=== PATIENT | female | born 1950 | race Caucasian/White ===

== ENCOUNTER → 2018-01-11 12:45 | Outpatient (CLI) | payer BC, SELFPAY | PROVIDERS: PCP Physician Assistant Medical; Visit Provider Physician Assistant | DX: R30.0 Dysuria (principal) | CPT/HCPCS: 87086 ==

== ENCOUNTER → 2018-03-08 15:01 | Outpatient (CLI) | payer BC, SELFPAY ==
--- NOTE | 2018-03-08 | DI.MG.S_ITS ---
BILATERAL DIGITAL SCREENING MAMMOGRAM 3D/2D WITH CAD: 03/08/2018 CLINICAL: Routine screening. Comparison is made to exams dated: 06/13/2016 mammogram, 01/26/2015 mammogram, and 01/13/2014 mammogram - [facility]. The tissue of both breasts is heterogeneously dense. This may lower the sensitivity of mammography. Current study was also evaluated with a Computer Aided Detection (CAD) system. There is an asymmetry in the right breast middle depth central to the nipple seen on the craniocaudal view only. There is an asymmetry in the left breast middle depth upper region seen on the mediolateral oblique view only. No other significant masses or calcifications are seen in either breast. IMPRESSION: INCOMPLETE: NEEDS ADDITIONAL IMAGING EVALUATION The asymmetry in the right breast middle depth central to the nipple seen on the craniocaudal view only is indeterminate. Additional views with possible ultrasound are recommended. The asymmetry in the left breast middle depth upper region seen on the mediolateral oblique view only is indeterminate. Additional views with possible ultrasound are recommended. This exam was interpreted at Station ID: [id number]. NOTE: For mammograms, a report in lay terms will be sent to the patient. Approximately 15% of breast malignancies will not be visualized mammographically. In the management of a palpable breast mass, a negative mammogram must not discourage biopsy of a clinically suspicious lesion. Electronically Signed By: Juarez Quinn M.D. ecl/:03/10/2018 00:22:51 letter sent: Additional Imaging Needed ACR BI-RADS Category 0: Incomplete 3340F
== END ==
PROVIDERS: PCP Physician Assistant; Visit Provider Physician Assistant Medical
DX: Z12.31 Encounter for screening mammogram for malignant neoplasm of breast (principal)
CPT/HCPCS: 77063; 77067

== ENCOUNTER → 2018-04-02 08:54 | Outpatient (CLI) | payer BC, SELFPAY ==
--- NOTE | 2018-04-02 | DI.MG.S_ITS ---
BILATERAL DIGITAL DIAGNOSTIC MAMMOGRAM 3D/2D WITH ADDITIONAL VIEWS: 04/02/2018 CLINICAL: Additional evaluation requested from prior study. Comparison is made to exams dated: 03/08/2018 mammogram, 06/13/2016 mammogram, and 01/26/2015 mammogram - [facility]. The tissue of both breasts is heterogeneously dense. This may lower the sensitivity of mammography. There is a benign oval asymmetry in the right breast anterior depth central to the nipple seen on the craniocaudal view only. This is not seen in additional views. There is irregular equal density architectural distortion with an indistinct margin in the left breast at 1 o'clock middle depth. This is less prominent. No other significant masses or calcifications are seen in either breast. IMPRESSION: INCOMPLETE: NEEDS ADDITIONAL IMAGING EVALUATION The irregular equal density architectural distortion in the left breast at 1 o'clock middle depth is indeterminate. An ultrasound is recommended. This exam was interpreted at Station ID: [id number]. NOTE: For mammograms, a report in lay terms will be sent to the patient. Approximately 15% of breast malignancies will not be visualized mammographically. In the management of a palpable breast mass, a negative mammogram must not discourage biopsy of a clinically suspicious lesion. Electronically Signed By: Nicholas trivedi/crystal:04/06/2018 10:46:06 letter sent: Need Ultrasound ACR BI-RADS Category 0: Incomplete 3340F
--- NOTE | 2018-04-02 | DI.US.S_ITS ---
LIMITED ULTRASOUND OF LEFT BREAST AND AXILLA: 04/02/2018 CLINICAL: Patient returns today to evaluate a density in the left breast. Comparison is made to exams dated: 04/02/2018 mammogram, 03/08/2018 mammogram, 06/13/2016 mammogram, and 01/26/2015 mammogram - [facility]. Color flow and real-time ultrasound of the left breast upper outer quadrant and axilla regions were performed on the areas of interest. There is 0.8 cm x 0.7 cm x 0.7 cm oval mass with an indistinct margin in the left breast at 2 o'clock middle depth. This oval mass is hypoechoic and hyperechoic but of mixed echogenicity with a hyperechoic rim. This correlates with mammography findings. Color flow imaging demonstrates that there is no vascularity present. No abnormalities were seen sonographically in the left axilla. IMPRESSION: SUSPICIOUS OF MALIGNANCY The 0.8 cm x 0.7 cm x 0.7 cm oval mass in the left breast is at a moderate suspicion for malignancy. An ultrasound guided biopsy is recommended. The findings were discussed with the patient at the conclusion of the study by Dr. Albrecht. This exam was interpreted at Station ID: [id number]. Electronically Signed By: Nicholas Phillips M.D. ddp/:04/02/2018 10:23:12 letter sent: Biopsy Required Ultrasound BI-RADS: 4c Suspicious abnormality - moderate concern but not classic for malignancy
== END ==
PROVIDERS: PCP Physician Assistant; Visit Provider Physician Assistant
DX: R92.8 Other abnormal and inconclusive findings on diagnostic imaging of breast (principal); N63.21 Unspecified lump in the left breast, upper outer quadrant
CPT/HCPCS: 76642; 77066; G0279

== ENCOUNTER → 2018-04-10 11:31 | Outpatient (CLI) | payer BC, SELFPAY ==
[2018-04-10 12:28] LABS: Add Manual Diff / Slide Review NO; Basophils Percent Auto 0.7 % (0-2); Eosinophils Percent Auto 2.6 % (2-4); Hematocrit 42.1 % (36-46); Hemoglobin 14.7 g/dL (12.0-16.0); Mean Corpuscular HGB Conc 34.8 % (30-36); Mean Corpuscular Hemoglobin 30.2 PG (26-34); Mean Corpuscular Volume 86.6 fL (80-100); Monocytes Percent Auto 9.4 % (3-14); Neutrophils Absolute Auto 3600 /uL (3000-5900); Neutrophils Percent Auto 55.3 % (50-75); Platelet Count 323 X10^3/uL (150-400); Red Blood Cell Count 4.86 X10^6/uL (4.0-5.2); Red Cell Distribution Width 13.7 % (11.6-14.8); White Blood Cell Count 6.5 X10^3/uL (4.5-11.0)
[2018-04-10 12:37] LABS: Alanine Aminotransferase 53 IU/L (9-52); Albumin 4.4 g/dL (3.5-5.0); Albumin Globulin Ratio 1.5 (1.0-2.8); Alkaline Phosphatase 117 U/L (38-126); Aspartate Aminotransferase 42 IU/L (14-36); BUN Creatinine Ratio 17.1 (6-22); Bilirubin Total 0.8 mg/dL (0.2-1.3); Blood Urea Nitrogen 12 mg/dL (7-17); Calcium 9.4 mg/dL (8.4-10.2); Carbon Dioxide 29 mmol/L (22-32); Chloride 104 mmol/L (98-107); Cholesterol 170 mg/dL (140-199); Estimated Glomerular Filt Rate > 60.0 mL/min (>60); Globulin 2.9 g/dL (1.7-4.1); Glucose 117 mg/dL (80-110); HDL Cholesterol 43 mg/dL (40-60); HEMOLYSIS < 15 (0-50); LDL Cholesterol Calculated 85 mg/dL (<100); Potassium 4.4 mmol/L (3.4-5.1); Sodium 144 mmol/L (137-145); Total Protein 7.3 g/dL (6.3-8.2); Triglycerides 212 mg/dL (35-150)
== END ==
PROVIDERS: PCP Physician Assistant; Visit Provider Physician Assistant
DX: E78.5 Hyperlipidemia, unspecified (principal)
CPT/HCPCS: 36415; 80053; 80061; 85025

== ENCOUNTER → 2018-04-27 09:15 | Outpatient (CLI) | payer MEDICARE, SELFPAY | PROVIDERS: PCP Physician Assistant; Visit Provider Physician Assistant | DX: N63.20 Unspecified lump in the left breast, unspecified quadrant (principal); Z53.9 Procedure and treatment not carried out, unspecified reason ==

== ENCOUNTER → 2018-05-10 14:03 | Outpatient (CLI) | payer MEDICARE, SELFPAY ==
--- NOTE | 2018-05-10 | DI.US.S_ITS ---
ULTRASOUND OF LEFT BREAST: 05/10/2018 CLINICAL: Sched. for left breast biopsy. Mass measures smaller today, biopsy cancelled, and short term follow-up is recommended. Comparison is made to exams dated: 04/02/2018 ultrasound, 04/02/2018 mammogram, and 03/08/2018 mammogram - [facility]. Color flow and real-time ultrasound of the left breast were performed on the areas of interest. Alcantar scale images of the real-time examination were reviewed. Previous 0.8 cm x 0.7 cm x 0.7 cm oval mass with an indistinct margin in the left breast at 2 o'clock middle depth. This oval mass is decreased in size and less prominent currently 5 x 4 x 4 mm. Color flow imaging demonstrates that there is no vascularity present. IMPRESSION: PROBABLY BENIGN Decreasing oval lesion in the left breast is probably benign. A follow-up ultrasound in 1 month is recommended. Findings and recommendations were discussed in detail with the patient at the time of the examination and all questions were answered. This exam was interpreted at Station ID: [id number]. Electronically Signed By: Guilherme riojas/:05/10/2018 16:09:18 letter sent: Followup Recommended Ultrasound BI-RADS: 3 Probably benign
== END ==
PROVIDERS: PCP Physician Assistant; Visit Provider Physician Assistant
DX: R92.8 Other abnormal and inconclusive findings on diagnostic imaging of breast (principal); N63.21 Unspecified lump in the left breast, upper outer quadrant
CPT/HCPCS: 76642

== ENCOUNTER → 2018-06-10 14:54 | Outpatient (CLI) | payer MEDICARE, SELFPAY ==
--- NOTE | 2018-06-10 | DI.US.S_ITS ---
LIMITED ULTRASOUND OF LEFT BREAST: 06/10/2018 CLINICAL: Short term follow-up of decreasing left breast mass. Comparison is made to exams dated: 05/10/2018 ultrasound, 04/02/2018 ultrasound, 04/02/2018 mammogram, 03/08/2018 mammogram, and 06/13/2016 mammogram - [facility]. Real-time and Doppler ultrasound of the left breast 2-3 o'clock region were performed. Alcantar scale images of the real-time examination were reviewed. There is redemonstration of an oval hypoechoic mass with indistinct margin and internal echogenic foci in the left breast at 2:30 position 6 cm from the nipple. There is no significant internal or peripheral vascularity surrounding this mass on the current ultrasound exam. This mass currently measures 0.3 x 0.3 x 0.2 cm, previously 0.5 x 0.5 x 0.4 cm on ultrasound of 05/10/18 and 0.8 x 0.7 x 0.7 cm on comparison ultrasound of 04/02/2018. IMPRESSION: PROBABLY BENIGN Continued interval decrease in size of the oval hypoechoic mass in the left breast at 2:30 position 6 cm from the nipple, likely representing the resolving sequela of prior trauma/fat necrosis and probably benign. Short-term followup targeted ultrasound in 3 months recommended to demonstrate continued stability/resolution. Patient is advised to return sooner for reevaluation change she feels anything grow or change within her breast. This exam was interpreted at Station ID: [id number]. Electronically Signed By: Juarez Quinn M.D. ecl/:06/10/2018 15:59:13 letter sent: Followup Recommended Ultrasound BI-RADS: 3 Probably benign
== END ==
PROVIDERS: PCP Physician Assistant; Visit Provider Physician Assistant
DX: R92.8 Other abnormal and inconclusive findings on diagnostic imaging of breast (principal); N63.21 Unspecified lump in the left breast, upper outer quadrant
CPT/HCPCS: 76642

== ENCOUNTER → 2018-10-12 14:37 | Outpatient (CLI) | payer MEDICARE, SELFPAY ==
--- NOTE | 2018-10-12 | DI.US.S_ITS ---
LIMITED ULTRASOUND OF LEFT BREAST: 10/12/2018 CLINICAL: Abnormal mammogram. Short term follow-up. Comparison is made to exams dated: 06/10/2018 ultrasound, 05/10/2018 ultrasound, 04/02/2018 ultrasound, 04/02/2018 mammogram, 03/08/2018 mammogram, and 06/13/2016 mammogram - [facility]. Real-time and Doppler ultrasound of the left breast 2-3 o'clock region were performed. Alcantar scale images of the real-time examination were reviewed. There is redemonstration of an oval hypoechoic mass with indistinct margin and internal echogenic foci in the left breast at 2:30 position 6 cm from the nipple. There is no significant internal or peripheral vascularity surrounding this mass on the current ultrasound exam. This mass currently measures 0.4 x 0.3 x 0.2 cm, previously 0.3 x 0.3 x 0.2 cm on 06/10/2018, 0.5 x 0.5 x 0.4 cm on 05/10/18, and 0.8 x 0.7 x 0.7 cm on 04/02/2018. IMPRESSION: PROBABLY BENIGN Stable 0.4 cm oval hypoechoic mass in the left breast at 2:30 position 6 cm from the nipple, likely representing the resolving sequela of prior trauma/fat necrosis and probably benign. A followup targeted ultrasound in 6 months recommended to demonstrate continued stability/resolution. Patient is advised to return sooner for reevaluation change she feels anything grow or change within her breast. This exam was interpreted at Station ID: [id number]. Electronically Signed By: Juarez Quinn M.D. ecl/:10/12/2018 17:14:17 letter sent: Followup Recommended Ultrasound BI-RADS: 3 Probably benign
== END ==
PROVIDERS: PCP Physician Assistant; Visit Provider Physician Assistant
DX: R92.8 Other abnormal and inconclusive findings on diagnostic imaging of breast (principal); N63.21 Unspecified lump in the left breast, upper outer quadrant
CPT/HCPCS: 76642

== ENCOUNTER → 2018-11-12 16:48 | Outpatient (CLI) | payer MEDICARE, SELFPAY | PROVIDERS: PCP Physician Assistant; Visit Provider Physician Assistant | DX: R30.0 Dysuria (principal) | CPT/HCPCS: 87077; 87086; 87186 ==

== ENCOUNTER → 2019-01-23 16:57 | Outpatient (CLI) | payer MEDICARE, SELFPAY | PROVIDERS: PCP Physician Assistant; Visit Provider Physician Assistant | DX: N30.01 Acute cystitis with hematuria (principal) | CPT/HCPCS: 87077; 87086; 87186 ==

== ENCOUNTER → 2019-05-04 14:38 | Outpatient (CLI) | payer MEDICARE, SELFPAY ==
--- NOTE | 2019-05-04 | DI.MG.S_ITS ---
BILATERAL DIGITAL DIAGNOSTIC MAMMOGRAM 3D/2D SHORT-TERM FOLLOW-UP: 05/04/2019 CLINICAL: Patient returns for a 12 month follow up of the left breast, due for bilateral imaging. Comparison is made to exams dated: 04/02/2018 mammogram, 03/08/2018 mammogram, and 06/13/2016 mammogram - [facility]. The tissue of both breasts is heterogeneously dense. This may lower the sensitivity of mammography. No significant masses, calcifications, or other findings are seen in either breast. IMPRESSION: INCOMPLETE: NEEDS ADDITIONAL IMAGING EVALUATION There is no abnormality seen in the left breast to correspond with the ultrasound finding at 2:30 o'clock described on prior ultrasounds. Further evaluation with sonogram is recommended which is scheduled to immediately follow this examination. This exam was interpreted at Station ID: [id number]. NOTE: For mammograms, a report in lay terms will be sent to the patient. Approximately 15% of breast malignancies will not be visualized mammographically. In the management of a palpable breast mass, a negative mammogram must not discourage biopsy of a clinically suspicious lesion. Electronically Signed By: Clement Brown M.D. aty/:05/04/2019 15:09:00 ACR BI-RADS Category 0: Incomplete 3340F
--- NOTE | 2019-05-04 | DI.US.S_ITS ---
ULTRASOUND OF LEFT BREAST: 05/04/2019 CLINICAL: Follow-up the left breast. Comparison is made to exams dated: 05/04/2019 mammogram, 10/12/2018 ultrasound, 06/10/2018 ultrasound, 05/10/2018 ultrasound, 04/02/2018 ultrasound, and 04/02/2018 mammogram - [facility]. Color flow and real-time ultrasound of the left breast were performed. Alcantar scale images of the real-time examination were reviewed. There continued interval decrease in size and conspicuity of previously described irregular mass with an indistinct margin in the left breast at 2 o'clock middle depth 6 cm from the nipple now measuring 0.1 cm x 0.2 cm x 0.2 cm, previously around 0.4 cm and initially around 0.8cm in size. This irregular mass is hypoechoic with internal echoes. There is no internal vascularity. IMPRESSION: PROBABLY BENIGN The 0.1 cm x 0.2 cm x 0.2 cm irregular mass in the left breast likely represents a complicated cyst or fat necrosis/prior trauman and is probably benign. A follow-up mammogram and an ultrasound in 12 months is recommended to demonstrate stability/resolution. This exam was interpreted at Station ID: [id number]. Electronically Signed By: Clement Brown M.D. aty/:05/04/2019 15:38:39 letter sent: Followup Recommended Ultrasound BI-RADS: 3 Probably benign
== END ==
PROVIDERS: PCP Physician Assistant; Visit Provider Physician Assistant
DX: R92.8 Other abnormal and inconclusive findings on diagnostic imaging of breast (principal); N63.21 Unspecified lump in the left breast, upper outer quadrant
CPT/HCPCS: 76642; 77066; G0279

== ENCOUNTER → 2019-06-04 09:09 | Outpatient (CLI) | payer MEDICARE, SELFPAY ==
[2019-06-04 10:35] LABS: Add Manual Diff / Slide Review NO; Alanine Aminotransferase 76 IU/L (<35); Albumin 4.1 g/dL (3.5-5.0); Albumin Globulin Ratio 1.4 (1.0-2.8); Alkaline Phosphatase 112 U/L (38-126); Aspartate Aminotransferase 75 IU/L (14-36); Basophils Absolute Auto 0 /uL (0-100); Basophils Percent Auto 0.5 % (0-2); Bilirubin Total 0.7 mg/dL (0.2-1.3); Blood Urea Nitrogen 11 mg/dL (7-17); Calcium 9.2 mg/dL (8.4-10.2); Carbon Dioxide 26 mmol/L (22-32); Chloride 106 mmol/L (98-107); Cholesterol 167 mg/dL (140-199); Eosinophils Absolute Auto 200 /uL (0-450); Estimated Glomerular Filt Rate > 60.0 mL/min (>60); Globulin 2.9 g/dL (1.7-4.1); Glucose 142 mg/dL (80-110); HDL Cholesterol 35 mg/dL (40-60); HEMOLYSIS < 15 (0-50); Hematocrit 41.7 % (36-46); Hemoglobin 14.6 g/dL (12.0-16.0); LDL Cholesterol Calculated 90 mg/dL (<100); Lymphocytes Absolute Auto 2200 /uL (1100-4500); Lymphocytes Percent Auto 35.6 % (25-40); Mean Corpuscular HGB Conc 35.1 % (30-36); Mean Corpuscular Hemoglobin 30.9 PG (26-34); Mean Corpuscular Volume 87.9 fL (80-100); Monocytes Absolute Auto 500 /uL (0-900); Monocytes Percent Auto 8.6 % (3-14); Neutrophils Absolute Auto 3300 /uL (1500-7000); Neutrophils Percent Auto 52.3 % (50-75); Platelet Count 305 X10^3/uL (150-400); Red Blood Cell Count 4.74 X10^6/uL (4.0-5.2); Red Cell Distribution Width 13.3 % (11.6-14.8); Sodium 142 mmol/L (137-145); Triglycerides 209 mg/dL (35-150); White Blood Cell Count 6.3 X10^3/uL (4.5-11.0)
== END ==
PROVIDERS: PCP Physician Assistant; Visit Provider Physician Assistant
DX: E78.00 Pure hypercholesterolemia, unspecified (principal)
CPT/HCPCS: 36415; 80053; 80061; 85025

== ENCOUNTER → 2019-06-25 11:34 | Outpatient (CLI) | payer OTHER, SELFPAY ==
[2019-06-25 13:31] LABS: Alanine Aminotransferase 98 IU/L (<35); Albumin 4.3 g/dL (3.5-5.0); Albumin Globulin Ratio 1.7 (1.0-2.8); Alkaline Phosphatase 113 U/L (38-126); Aspartate Aminotransferase 131 IU/L (14-36); Bilirubin Total 0.7 mg/dL (0.2-1.3); Blood Urea Nitrogen 12 mg/dL (7-17); Calcium 9.5 mg/dL (8.4-10.2); Carbon Dioxide 25 mmol/L (22-32); Chloride 105 mmol/L (98-107); Estimated Glomerular Filt Rate > 60.0 mL/min (>60); Globulin 2.6 g/dL (1.7-4.1); Glucose 166 mg/dL (80-110); HEMOLYSIS < 15 (0-50); Potassium 4.3 mmol/L (3.4-5.1); Sodium 139 mmol/L (137-145); Total Protein 6.9 g/dL (6.3-8.2)
== END ==
PROVIDERS: PCP Physician Assistant; Visit Provider Physician Assistant
DX: R94.5 Abnormal results of liver function studies (principal)
CPT/HCPCS: 36415; 80053

== ENCOUNTER → 2019-06-29 15:36 | Outpatient (CLI) | payer OTHER, SELFPAY ==
[2019-06-29 17:33] LABS: Gamma Glutamyl Transpeptidase 84 U/L (12-43)
[2019-07-03 10:04] LABS: Hepatitis A Antibody IgM NONREACTIVE; Hepatitis Acute Panel Interp 0.01; Hepatitis B Core Antibody IgM NONREACTIVE; Hepatitis B Surface Antigen NONREACTIVE; Hepatitis C Antibody NONREACTIVE
== END ==
PROVIDERS: PCP Physician Assistant; Visit Provider Physician Assistant
DX: R94.5 Abnormal results of liver function studies (principal)
CPT/HCPCS: 36415; 80074; 82977

== ENCOUNTER → 2019-07-11 16:05 | Outpatient (CLI) | payer OTHER, SELFPAY ==
--- NOTE | 2019-07-11 | DI.US.S_ITS ---
PROCEDURE: US ABDOMEN COMPLETE INDICATIONS: ABN LFT'S TECHNIQUE: Real-time scanning was performed of the abdominal and retroperitoneal organs, with image documentation. COMPARISON: None. FINDINGS: Liver: Liver is normal in size and homogeneous in echotexture, prominently echogenic, consistent with extensive fatty infiltration. Gallbladder: The gallbladder appears normal Biliary ducts: Intrahepatic bile ducts are non-dilated. Extrahepatic bile duct caliber measures 6.7 mm. Normal is 6-7 mm or less in diameter, or 10 mm or less post-cholecystectomy. Pancreas: Visualized portions of the pancreas are sonographically normal. Spleen: Spleen is normal in size and homogeneous in echotexture. Kidneys: Kidneys are normal in size and echotexture. Right kidney measures 9.9 cm long; left kidney measures 11.7 cm long. No hydronephrosis or nephrolithiasis. No solid masses. Note is made of a 1.5 cm maximal dimension left renal cortical cyst. Aorta: Visualized aorta is normal in caliber at less than 3 cm. Iliacs: Proximal common iliac arteries are normal in caliber at less than 2.5 cm. IVC: Intrahepatic inferior vena cava is patent. Miscellaneous: No free abdominal fluid. IMPRESSION: Probably echogenic liver, consistent with relatively pronounced fatty infiltration. No splenomegaly or ascites is found. Please correlate clinically for potential etiology of underlying hepatic steatosis. Dictated by: Adonis Santana M.D. on 07/11/2019 at 17:39 Approved by: Adonis Santana M.D. on 07/11/2019 at 17:40
== END ==
PROVIDERS: PCP Physician Assistant; Visit Provider Physician Assistant
DX: R94.5 Abnormal results of liver function studies (principal)
CPT/HCPCS: 76700

== ENCOUNTER → 2020-04-07 09:28 | Outpatient (CLI) | payer OTHER, SELFPAY ==
[2020-04-07 10:44] LABS: Add Manual Diff / Slide Review NO; Basophils Absolute Auto 100 /uL (0-100); Eosinophils Absolute Auto 200 /uL (0-450); Eosinophils Percent Auto 2.7 % (2-4); Hematocrit 42.5 % (36-46); Hemoglobin 14.3 g/dL (12.0-16.0); Lymphocytes Absolute Auto 2300 /uL (1100-4500); Mean Corpuscular HGB Conc 33.5 % (30-36); Mean Corpuscular Hemoglobin 30.3 PG (26-34); Mean Corpuscular Volume 90.4 fL (80-100); Monocytes Absolute Auto 600 /uL (0-900); Neutrophils Absolute Auto 3300 /uL (1500-7000); Neutrophils Percent Auto 51.3 % (50-75); Platelet Count 308 X10^3/uL (150-400); Red Cell Distribution Width 13.3 % (11.6-14.8); White Blood Cell Count 6.5 X10^3/uL (4.5-11.0)
[2020-04-07 11:08] LABS: Alanine Aminotransferase 51 IU/L (<35); Albumin 4.2 g/dL (3.5-5.0); Albumin Globulin Ratio 1.3 (1.0-2.8); Alkaline Phosphatase 109 U/L (38-126); Aspartate Aminotransferase 40 IU/L (14-36); BUN Creatinine Ratio 22.4 (6-22); Bilirubin Total 0.6 mg/dL (0.2-1.3); Bilirubin Unconjugated 0.5 mg/dL (0.0-1.1); Blood Urea Nitrogen 13 mg/dL (7-17); Calcium 9.4 mg/dL (8.4-10.2); Carbon Dioxide 30 mmol/L (22-32); Chloride 107 mmol/L (98-107); Cholesterol 278 mg/dL (140-199); Estimated Glomerular Filt Rate > 60.0 mL/min (>60); Globulin 3.2 g/dL (1.7-4.1); Glucose 127 mg/dL (80-110); HDL Cholesterol 34 mg/dL (40-60); HEMOLYSIS < 15 (0-50); LDL Cholesterol Calculated 189 mg/dL (<100); Potassium 4.6 mmol/L (3.4-5.1); Sodium 141 mmol/L (137-145); Total Protein 7.4 g/dL (6.3-8.2); Triglycerides 273 mg/dL (35-150)
== END ==
PROVIDERS: PCP Physician Assistant; Referring Provider Physician Assistant; Visit Provider Physician Assistant
DX: E78.00 Pure hypercholesterolemia, unspecified (principal); K75.0 Abscess of liver
CPT/HCPCS: 36415; 80053; 80061; 80076; 85025

== ENCOUNTER → 2020-06-30 09:57 | Outpatient (CLI) | payer MEDICARE, SELFPAY ==
[2020-06-30 11:25] LABS: Alanine Aminotransferase 40 IU/L (<35); Albumin 3.9 g/dL (3.5-5.0); Albumin Globulin Ratio 1.5 (1.0-2.8); Alkaline Phosphatase 101 U/L (38-126); Aspartate Aminotransferase 37 IU/L (14-36); BUN Creatinine Ratio 22.2 (6-22); Bilirubin Total 0.5 mg/dL (0.2-1.3); Blood Urea Nitrogen 12 mg/dL (7-17); Calcium 9.1 mg/dL (8.4-10.2); Carbon Dioxide 28 mmol/L (22-32); Chloride 107 mmol/L (98-107); Cholesterol 287 mg/dL (140-199); Estimated Glomerular Filt Rate > 60.0 mL/min (>60); Globulin 2.6 g/dL (1.7-4.1); Glucose 113 mg/dL (80-110); HDL Cholesterol 40 mg/dL (40-60); HEMOLYSIS < 15 (0-50); LDL Cholesterol Calculated 197 mg/dL (<100); Potassium 4.3 mmol/L (3.4-5.1); Sodium 137 mmol/L (137-145); Total Protein 6.5 g/dL (6.3-8.2); Triglycerides 251 mg/dL (35-150)
== END ==
PROVIDERS: PCP Physician Assistant; Referring Provider Physician Assistant; Visit Provider Physician Assistant
DX: E78.00 Pure hypercholesterolemia, unspecified (principal); K76.0 Fatty (change of) liver, not elsewhere classified; E78.2 Mixed hyperlipidemia
CPT/HCPCS: 36415; 80053; 80061

== ENCOUNTER → 2020-07-26 14:49 | Outpatient (CLI) | payer MEDICARE, SELFPAY ==
--- NOTE | 2020-07-26 | DI.MG.S_ITS ---
BILATERAL DIGITAL DIAGNOSTIC MAMMOGRAM 3D/2D SHORT-TERM FOLLOW-UP: 07/26/2020 CLINICAL: Short term follow up of the left breast, due for bilateral imaging. Comparison is made to exams dated: 05/04/2019 mammogram, 04/02/2018 mammogram, and 03/08/2018 mammogram - [facility]. The tissue of both breasts is heterogeneously dense. This may lower the sensitivity of mammography. There is an irregular focal asymmetry with an indistinct margin in the left breast at 2 o'clock middle depth. This is less prominent and decreased in size. No other significant masses, calcifications, or other findings are seen in either breast. IMPRESSION: INCOMPLETE: NEEDS ADDITIONAL IMAGING EVALUATION The irregular focal asymmetry in the left breast is indeterminate. An ultrasound is recommended. Ultrasound will be performed immediately following the current exam. This exam was interpreted at Station ID: [id number]. NOTE: For mammograms, a report in lay terms will be sent to the patient. Approximately 15% of breast malignancies will not be visualized mammographically. In the management of a palpable breast mass, a negative mammogram must not discourage biopsy of a clinically suspicious lesion. Electronically Signed By: Nicholas Phillips M.D. ddp/:07/26/2020 16:58:22 ACR BI-RADS Category 0: Incomplete 3340F
--- NOTE | 2020-07-26 14:51 | DI.US.S_ITS ---
LIMITED ULTRASOUND OF LEFT BREAST: 07/26/2020 CLINICAL: Patient returns today to evaluate a focal asymmetry in the left breast. Comparison is made to exams dated: 07/26/2020 mammogram, 05/04/2019 ultrasound, 05/04/2019 mammogram, 10/12/2018 ultrasound, 06/10/2018 ultrasound, and 05/10/2018 ultrasound [facility]. Real-time ultrasound of the left breast 2-3 o'clock region was performed on the area of interest. The previously visualized resolving irregular mass in the left breast at 2 o'clock middle depth is no longer seen. IMPRESSION: BENIGN There is no sonographic evidence of malignancy. A 1 year screening mammogram is recommended. This exam was interpreted at Station ID: [id number]. Electronically Signed By: Nicholas Phillips M.D. ddyunior/:07/26/2020 16:57:49 letter sent: Normal Exam Ultrasound BI-RADS: 2 Benign
== END ==
PROVIDERS: PCP Physician Assistant; Referring Provider Physician Assistant; Visit Provider Physician Assistant
DX: R92.8 Other abnormal and inconclusive findings on diagnostic imaging of breast (principal); N64.89 Other specified disorders of breast
CPT/HCPCS: 76642; 77066; G0279

== ENCOUNTER → 2020-09-07 16:03 | Outpatient (CLI) | payer MEDICARE, SELFPAY ==
[2020-09-07] MEDS: COVID-19 VACC #1, MRNA(MOD) 100 MCG/0.5 ML VIAL IM (16:05)
== END ==
PROVIDERS: PCP Physician Assistant; Visit Provider Internal Medicine
DX: Z23 Encounter for immunization (principal)
CPT/HCPCS: 0011A; 91301

== ENCOUNTER → 2020-10-05 08:48 | Outpatient (CLI) | payer MEDICARE, SELFPAY | PROVIDERS: PCP Physician Assistant; Visit Provider Student in an Organized Health Care Education/Training Program | DX: N34.3 Urethral syndrome, unspecified (principal) | CPT/HCPCS: 87077; 87086; 87186 ==

== ENCOUNTER → 2020-10-05 16:00 | Outpatient (CLI) | payer MEDICARE, SELFPAY ==
[2020-10-05] MEDS: COVID-19 VACC #2, MRNA(MOD) 100 MCG/0.5 ML VIAL IM (16:04)
== END ==
PROVIDERS: PCP Physician Assistant; Visit Provider Internal Medicine
DX: Z23 Encounter for immunization (principal)
CPT/HCPCS: 0012A; 91301

== ENCOUNTER → 2021-06-20 09:44 | Outpatient (CLI) | payer MEDICARE, SELFPAY ==
--- NOTE | 2021-06-20 09:45 | DI.US.S_ITS ---
PROCEDURE: US PELVIC COMPLETE INDICATIONS: FAMILY HISTORY OF OVARIAN CANCER - SCREENING TECHNIQUE: Real-time scanning was performed of the pelvic organs, with image documentation. Additional endovaginal scanning was necessary due to incomplete visualization of the adnexal and endometrial structures by transabdominal scanning. COMPARISON: [facility], US, US PELVIC COMPLETE, 03/22/2018, 8:53. [facility], , PELVIC COMPLETE, 06/17/2016, 11:06. FINDINGS: Uterus: Uterus is anteverted and normal in size at 6.1 x 4.1 x 2.2 cm. The myometrium is heterogeneous, yet without focal fibroids seen. The endometrium measures 2 mm combined thickness. There is a thickened appearing cervical canal, with an irregular complex nonvascular mass along the cervical canal seen that measures 2.2 x 1.7 x 0.6 cm. Ovaries: Neither ovary is well seen. No adnexal masses are seen on either side. Other: No pathologic free abdominal or pelvic fluid. IMPRESSION: Neither ovary is well seen. No adnexal masses are seen on either side. There is an apparent mass seen along the cervical canal. Please correlate with known patient history and physical examination/Pap smear findings. We strive to produce accurate, complete, and clear reports of imaging services. To assist us in improving patient care, this report was composed using standard report templates and voice recognition software. Therefore, it may contain abnormal punctuation, insertions and/or omissions. Occasional wrong-word or sound-alike substitutions may occur. Though we review the report and make efforts to correct it, we do recommend that the report be read carefully in proper context to recognize any text inaccuracies. Dictated by: Hai Estevez M.D. on 06/20/2021 at 11:23 Approved by: Hai Estevez M.D. on 06/20/2021 at 11:25
== END ==
PROVIDERS: PCP Physician Assistant; Referring Provider Obstetrics & Gynecology; Visit Provider Obstetrics & Gynecology
DX: Z12.73 Encounter for screening for malignant neoplasm of ovary (principal); Z80.41 Family history of malignant neoplasm of ovary
CPT/HCPCS: 76830; 76856

== ENCOUNTER → 2021-08-17 15:03 | Outpatient (CLI) | payer MEDICARE, SELFPAY ==
--- NOTE | 2021-08-17 15:09 | DI.MG.S_ITS ---
BILATERAL DIGITAL SCREENING MAMMOGRAM 3D/2D WITH CAD: 08/17/2021 CLINICAL: Routine screening. Family history of breast cancer. Comparison is made to exams dated: 07/26/2020 mammogram, 05/04/2019 mammogram, and 04/02/2018 mammogram - [facility]. The tissue of both breasts is heterogeneously dense. This may lower the sensitivity of mammography. Current study was also evaluated with a Computer Aided Detection (CAD) system. No significant masses, calcifications, or other findings are seen in either breast. There has been no significant interval change. IMPRESSION: NEGATIVE There is no mammographic evidence of malignancy. A 1 year screening mammogram is recommended. This exam was interpreted at Station ID: [id number]. NOTE: For mammograms, a report in lay terms will be sent to the patient. Approximately 15% of breast malignancies will not be visualized mammographically. In the management of a palpable breast mass, a negative mammogram must not discourage biopsy of a clinically suspicious lesion. Electronically Signed By: Rosario chan/crystal:08/19/2021 09:06:29 letter sent: Normal Exam ACR BI-RADS Category 1: Negative 3341F
== END ==
PROVIDERS: PCP Physician Assistant; Referring Provider Physician Assistant; Visit Provider Physician Assistant
DX: Z12.31 Encounter for screening mammogram for malignant neoplasm of breast (principal); Z80.3 Family history of malignant neoplasm of breast
CPT/HCPCS: 77063; 77067

== ENCOUNTER → 2022-01-31 12:13 | Outpatient (CLI) | payer OTHER, SELFPAY ==
--- NOTE | 2022-01-31 12:14 | DI.US.S_ITS ---
PROCEDURE: US PELVIC COMPLETE INDICATIONS: F/U Endocervical Polyp TECHNIQUE: Real-time scanning was performed of the pelvic organs, with image documentation. Additional endovaginal scanning was necessary due to incomplete visualization of the adnexal and endometrial structures by transabdominal scanning. COMPARISON: [facility], US, US PELVIC COMPLETE, 06/20/2021, 9:50. FINDINGS: Uterus: Uterus is anteverted and normal in size at 6.2 x 2.2 x 4.1 cm. The myometrium is homogeneous. The endometrium measures 3.7 mm combined thickness. The endometrial polyp is redemonstrated and measures approximately 1.6 x 0.5 x 1.2 cm on the current study (previously measured 2.2 x 0.6 x 1.7 cm). Ovaries: The ovaries are not visualized. Other: No pathologic free abdominal or pelvic fluid. IMPRESSION: Endometrial polyp redemonstrated, slightly decreased in size. We strive to produce accurate, complete, and clear reports of imaging services. To assist us in improving patient care, this report was composed using standard report templates and voice recognition software. Therefore, it may contain abnormal punctuation, insertions and/or omissions. Occasional wrong-word or sound-alike substitutions may occur. Though we review the report and make efforts to correct it, we do recommend that the report be read carefully in proper context to recognize any text inaccuracies. Dictated by: Naina Cowan M.D. on 01/31/2022 at 16:30 Approved by: Naina Cowan M.D. on 01/31/2022 at 16:31
== END ==
PROVIDERS: PCP Physician Assistant; Referring Provider Obstetrics & Gynecology; Visit Provider Obstetrics & Gynecology
DX: N84.1 Polyp of cervix uteri (principal); Z80.41 Family history of malignant neoplasm of ovary
CPT/HCPCS: 76856

== ENCOUNTER → 2022-09-05 11:15 | Outpatient (CLI) | payer OTHER, SELFPAY ==
--- NOTE | 2022-09-05 11:24 | DI.MG.S_ITS ---
At the request of: SHIRA CONTRERAS Procedure: MM screening mammo BI BILATERAL DIGITAL SCREENING MAMMOGRAM 3D/2D WITH CAD: 09/05/2022 CLINICAL: Routine screening. Family history of breast cancer. Comparison is made to exams dated: 08/17/2021 mammogram, 07/26/2020 mammogram, and 05/04/2019 mammogram - [facility]. Both breasts are heterogeneously dense, which may obscure small masses (category c / 51-75% glandular tissue). Current study was also evaluated with a Computer Aided Detection (CAD) system. No significant masses, calcifications, or other findings are seen in either breast. There has been no significant interval change. IMPRESSION: NEGATIVE There is no mammographic evidence of malignancy. A 1 year screening mammogram is recommended. Based on the Tyrer Cuzick model (a risk assessment model) the patient?s lifetime risk is 10.2% and her 10 year risk is 7.1%. According to the ACR, ACS, and NCCN guidelines, an annual breast MRI exam along with mammogram is recommended if the patient?s lifetime risk is 20% or greater. This exam was interpreted at Station ID: [id number]. Continued Report - Page 2 of 2 Patient Name: SEDA ASTORGA date: 1950 Sex: F Attending Physician: Tova Indications: Date: 09/05/2022 17:31 At the request of: SHIRA CONTRERAS Procedure: MM screening mammo BI NOTE: For mammograms, a report in lay terms will be sent to the patient. Approximately 15% of breast malignancies will not be visualized mammographically. In the management of a palpable breast mass, a negative mammogram must not discourage biopsy of a clinically suspicious lesion. Electronically Signed By: Rosario chan/crystal:09/05/2022 17:31:57 letter sent: Normal Exam ACR BI-RADS Category 1: Negative 3341F
== END ==
PROVIDERS: PCP Physician Assistant; Referring Provider Physician Assistant; Visit Provider Physician Assistant
DX: Z12.31 Encounter for screening mammogram for malignant neoplasm of breast (principal)
CPT/HCPCS: 77063; 77067

== ENCOUNTER → 2023-02-13 14:17 | Outpatient (CLI) | payer OTHER, SELFPAY ==
--- NOTE | 2023-02-13 | DI.US.S_ITS ---
PROCEDURE: US PELVIC COMPLETE INDICATIONS: Family history of malignant neoplasm of ovary TECHNIQUE: Real-time scanning was performed of the pelvic organs, with image documentation. Additional endovaginal scanning was necessary due to incomplete visualization of the adnexal and endometrial structures by transabdominal scanning. COMPARISON: [facility], US, US PELVIC COMPLETE, 01/31/2022, 12:37. FINDINGS: Uterus: Uterus is anteverted and normal in size at 4.8 x 2.6 x 3.7 cm. The myometrium is homogeneous. The endometrium measures 2 mm combined thickness. Previously described endometrial polyp is not visualized on today's examination. Ovaries: The ovaries are not visualized. Other: No pathologic free abdominal or pelvic fluid. IMPRESSION: Pelvic ultrasound without acute sonographic abnormalities. Previously described endometrial polyp not visualized on this examination. The ovaries are not visualized on this exam. We strive to produce accurate, complete, and clear reports of imaging services. To assist us in improving patient care, this report was composed using standard report templates and voice recognition software. Therefore, it may contain abnormal punctuation, insertions and/or omissions. Occasional wrong-word or sound-alike substitutions may occur. Though we review the report and make efforts to correct it, we do recommend that the report be read carefully in proper context to recognize any text inaccuracies. Dictated by: Clement Brown M.D. on 02/13/2023 at 20:52 Approved by: Clement Brown M.D. on 02/13/2023 at 20:54
== END ==
PROVIDERS: PCP Physician Assistant; Referring Provider Physician Assistant; Visit Provider Physician Assistant
DX: Z09 Encounter for follow-up examination after completed treatment for conditions other than malignant neoplasm (principal); N84.0 Polyp of corpus uteri; Z80.41 Family history of malignant neoplasm of ovary
CPT/HCPCS: 76830; 76856

== ENCOUNTER → 2023-08-14 08:46 | Outpatient (CLI) | payer OTHER, SELFPAY ==
--- NOTE | 2023-08-14 | DI.US.S_ITS ---
PROCEDURE: US ABDOMEN LIMITED INDICATIONS: FATTY LIVER TECHNIQUE: Real-time scanning was performed of the abdominal and retroperitoneal organs, with image documentation. COMPARISON: [facility], , US ABDOMEN COMPLETE, 07/11/2019, 16:26. FINDINGS: Liver: The liver measures 13.3 cm in length and demonstrates increased echogenicity. Gallbladder: No gallstones. No wall thickening. No pericholecystic edema. Negative sonographic Mcclain's sign. Biliary ducts: Intrahepatic bile ducts are non-dilated. Extrahepatic bile duct caliber measures 5.0 mm. Normal is 6-7 mm or less in diameter, or 10 mm or less post-cholecystectomy. Pancreas: The pancreas is not visualized due to overlying bowel gas. Miscellaneous: No free abdominal fluid. IMPRESSION: Increased hepatic echogenicity noted likely related to fatty infiltration of the liver but other sources of hepatocellular disease cannot be excluded. No cholelithiasis or findings to suggest choledocholithiasis or acute cholecystitis. Dictated by: Naina Cowan M.D. on 08/14/2023 at 13:33 Approved by: Naina Cowan M.D. on 08/14/2023 at 13:37
== END ==
PROVIDERS: PCP Physician Assistant; Referring Provider Physician Assistant; Visit Provider Physician Assistant
DX: K76.0 Fatty (change of) liver, not elsewhere classified (principal)
CPT/HCPCS: 76705

== ENCOUNTER → 2023-10-02 11:29 | Outpatient (CLI) | payer MEDICARE, SELFPAY ==
--- NOTE | 2023-10-02 11:30 | DI.MG.S_ITS ---
BILATERAL DIGITAL SCREENING MAMMOGRAM 3D/2D WITH CAD: 10/02/2023 CLINICAL: Routine screening. Family history of breast cancer. Comparison is made to exams dated: 09/05/2022 mammogram, 08/17/2021 mammogram, 07/26/2020 mammogram, and 05/04/2019 mammogram - [facility]. Both breasts are heterogeneously dense, which may obscure small masses (category c / 51-75% glandular tissue). Current study was also evaluated with a Computer Aided Detection (CAD) system. No significant masses, calcifications, or other findings are seen in either breast. There has been no significant interval change. IMPRESSION: NEGATIVE There is no mammographic evidence of malignancy. A 1 year screening mammogram is recommended. Based on the Tyrer Cuzick model (a risk assessment model) the patient's lifetime risk is 9.7% and her 10 year risk is 7.3%. According to the ACR, ACS, and NCCN guidelines, an annual breast MRI exam along with mammogram is recommended if the patient's lifetime risk is 20% or greater. This exam was interpreted at Station ID: [id number]. NOTE: For mammograms, a report in lay terms will be sent to the patient. Approximately 15% of breast malignancies will not be visualized mammographically. In the management of a palpable breast mass, a negative mammogram must not discourage biopsy of a clinically suspicious lesion. Electronically Signed By: Alec fall/crystal:10/02/2023 16:38:04 letter sent: Normal Exam ACR BI-RADS Category 1: Negative [id number]
== END ==
LOC: MAMMO 11:30
PROVIDERS: PCP Physician Assistant; Referring Provider Physician Assistant; Visit Provider Physician Assistant
DX: Z12.31 Encounter for screening mammogram for malignant neoplasm of breast (principal); Z80.3 Family history of malignant neoplasm of breast; R92.333 Mammographic heterogeneous density, bilateral breasts
CPT/HCPCS: 77063; 77067

== ENCOUNTER → 2024-09-30 15:36 | Outpatient (CLI) | payer MEDICARE, SELFPAY ==
--- NOTE | 2024-09-30 15:38 | DI.US.S_ITS ---
PROCEDURE: US PELVIC COMPLETE INDICATIONS: FAMILY HISTORY OF OVARIAN CANCER. TECHNIQUE: Real-time scanning was performed of the pelvic organs, with image documentation. Additional endovaginal scanning was necessary due to incomplete visualization of the adnexal and endometrial structures by transabdominal scanning. COMPARISON: [facility], US, US PELVIC COMPLETE, 02/13/2023, 14:22. FINDINGS: Uterus: Uterus is anteverted and normal in size at 4.7 x 3.0 x 2.3 cm. The myometrium is heterogeneous. The endometrium measures 4.9 mm combined thickness. No endometrial mass or fluid is seen. Cystic changes are noted within endocervical canal. Ovaries: Bilateral ovaries are not visualized. No adnexal mass. Thickened broad ligament is seen in left adnexa which is of questionable significance. Other: No pathologic free abdominal or pelvic fluid. IMPRESSION: 1. Endometrial thickness is in the upper limits of normal. Cystic changes are noted in endocervical canal suggest [employer] correlation for early endometrial hyperplasia. No definite endometrial mass is seen. 2. Bilateral ovaries are not visualized. No adnexal mass. Thickened broad ligament in left adnexa and is of questionable significance. We strive to produce accurate, complete, and clear reports of imaging services. To assist us in improving patient care, this report was composed using standard report templates and voice recognition software. Therefore, it may contain abnormal punctuation, insertions and/or omissions. Occasional wrong-word or sound-alike substitutions may occur. Though we review the report and make efforts to correct it, we do recommend that the report be read carefully in proper context to recognize any text inaccuracies. Dictated by: Kelvin Luu M.D. on 09/30/2024 at 20:10 Approved by: Kelvin Luu M.D. on 09/30/2024 at 20:12
== END ==
LOC: US 15:38
PROVIDERS: PCP Physician Assistant; Referring Provider Physician Assistant; Visit Provider Physician Assistant
DX: Z12.73 Encounter for screening for malignant neoplasm of ovary (principal); Z80.41 Family history of malignant neoplasm of ovary
CPT/HCPCS: 76830; 76856

== ENCOUNTER → 2024-10-20 11:23 | Outpatient (CLI) | payer MEDICARE, SELFPAY ==
--- NOTE | 2024-10-20 11:24 | DI.MG.S_ITS ---
MM screening mammo BI: 10/20/2024. BI-RADS: 1 CLINICAL: 73-year old female for bilateral screening mammogram. Tyrer-Cuzick lifetime risk of 9.1%. Current reported family history of breast cancer: sister. PRIOR EXAMS 10/02/2023, 09/05/2022, 08/17/2021, 07/26/2020, 05/04/2019, 10/12/2018, 06/10/2018, 05/10/2018, 04/02/2018, 03/08/2018, 06/13/2016, 01/26/2015. MAMMOGRAPHY TECHNIQUE: 2D and 3D (tomosynthesis) digital mammographic views obtained, with additional images as needed for full coverage. Current study was also evaluated with a Computer Aided Detection (CAD) system. DENSITY C. The breasts are heterogeneously dense, which may obscure small masses. MAMMOGRAPHY FINDINGS Bilateral: No suspicious mass, asymmetry, microcalcification, or other abnormality seen. No significant change from comparison. IMPRESSION: * No evidence of malignancy. RECOMMENDATIONS Bilateral * Annual screening mammography. OVERALL ASSESSMENT CATEGORY BI-RADS-1: Negative. The [employer] recommends annual screening mammography beginning at age 40 for women with average risk of breast cancer. ELECTRONICALLY SIGNED: Rosario Vivas M.D. on 10/21/2024 at 11:40:20 AM PT Interpreting Station ID: [id number]
== END ==
PROVIDERS: PCP Physician Assistant; Referring Provider Physician Assistant; Visit Provider Physician Assistant
DX: Z12.31 Encounter for screening mammogram for malignant neoplasm of breast (principal); Z80.3 Family history of malignant neoplasm of breast; R92.333 Mammographic heterogeneous density, bilateral breasts
CPT/HCPCS: 77063; 77067

== ENCOUNTER → 2025-05-05 14:34 | Outpatient (CLI) | payer MEDICARE, SELFPAY ==
--- NOTE | 2025-05-05 14:34 | DI.US.S_ITS ---
PROCEDURE: US PELVIC COMPLETE INDICATIONS: 6 month re-evaluation of endometrial stripe TECHNIQUE: Real-time scanning was performed of the pelvic organs, with image documentation. Additional endovaginal scanning was necessary due to incomplete visualization of the adnexal and endometrial structures by transabdominal scanning. COMPARISON: [facility], US, US PELVIC COMPLETE, 09/30/2024, 16:22. FINDINGS: Uterus: Uterus is anteverted and normal in size at 4.7 x 3.0 x 2.3 cm. The myometrium is heterogeneous. The endometrium measures 3 mm combined thickness, decreased from prior. There is cystic change within the endometrium. Ovaries: The the ovaries are not visualized. Other: No pathologic free abdominal or pelvic fluid. IMPRESSION: Endometrial thickness measures 3 mm, within normal limits. Ovaries are not visualized. We strive to produce accurate, complete, and clear reports of imaging services. To assist us in improving patient care, this report was composed using standard report templates and voice recognition software. Therefore, it may contain abnormal punctuation, insertions and/or omissions. Occasional wrong-word or sound-alike substitutions may occur. Though we review the report and make efforts to correct it, we do recommend that the report be read carefully in proper context to recognize any text inaccuracies. Dictated by: Samia Lipscomb M.D. on 05/07/2025 at 13:44 Approved by: Samia Lipscomb M.D. on 05/07/2025 at 13:49
== END ==
PROVIDERS: PCP Physician Assistant; Referring Provider Obstetrics & Gynecology; Visit Provider Obstetrics & Gynecology
DX: R93.89 Abnormal findings on diagnostic imaging of other specified body structures (principal)
CPT/HCPCS: 76830; 76856